=== PATIENT | female | born 1960 | race Caucasian/White ===

== ENCOUNTER 2016-07-29 18:54 | Inpatient (IN) | payer MEDICAID, OTHER ==
[2016-07-29 20:54] LABS: BASO # 0.1 K/uL (0.0-0.2); BASO % 0.8 % (0.0-2.0); EOS # 0.3 K/uL (0.0-0.7); EOS % 2.3 % (0.0-4.0); LYMPH # 2.2 K/uL (1.0-4.3); LYMPH % 19.7 % (20.0-40.0); MEAN CELL VOLUME 84.7 fL (81.0-99.0); MEAN CORPUSCULAR HEMOGLOBIN 27.6 pg (27.0-31.0); MEAN CORPUSCULAR HGB CONC 32.6 g/dL (33.0-37.0); MEAN PLATELET VOLUME 8.1 fL (7.2-11.7); MONO # 0.8 K/uL (0.0-0.8); MONO % 7.3 % (0.0-10.0); RED CELL DISTRIBUTION WIDTH 13.8 % (11.5-14.5); WHITE BLOOD COUNT 11.4 K/uL (4.8-10.8)
[2016-07-29 21:03] LABS: CHLORIDE 103 mmol/L (98-107)
[2016-07-29 21:04] LABS: POTASSIUM 3.9 mmol/L (3.6-5.2); SODIUM 140 mmol/L (132-148)
[2016-07-29 21:06] LABS: CARBON DIOXIDE 28 mmol/L (22-30); GFR AFRICAN-AMERICAN > 60
[2016-07-29 21:07] LABS: ALB/GLOB RATIO 1.2 (1.0-2.1); ALKALINE PHOSPHATASE 84 U/L (38-126); ALT/SGPT 21 U/L (9-52); AST/SGOT 30 U/L (14-36); BILIRUBIN,TOTAL 0.4 mg/dL (0.2-1.3); BLOOD UREA NITROGEN 15 mg/dL (7-17); CALCIUM 8.9 mg/dl (8.6-10.4); GLUCOSE,RANDOM 92 mg/dL (65-105); TOTAL PROTEIN 7.9 g/dL (6.3-8.3)
[2016-07-29 21:23] LABS: RBC URINE 1 /hpf (0-3); URINE BILIRUBIN NEGATIVE (NEGATIVE); URINE BLOOD NEGATIVE (NEGATIVE); URINE COLOR Yellow (YELLOW); URINE GLUCOSE (UA) NORMAL (Normal); URINE KETONE NEGATIVE (NEGATIVE); URINE LEUKOCYTE ESTERASE NEG Leu/uL (Negative); URINE PROTEIN NEGATIVE (NEGATIVE); URINE UROBILINOGEN NORMAL mg/dL (0.2-1.0)
[2016-07-29] MEDS ORDERED: Sodium Chloride 0.9% 1,000 ML IV ONE (21:34)
--- NOTE | 2016-07-29 21:41 | C.PDOC ---
History Of Present Illness 55 y/o female presents to the ED with complaints of epigastric/RUQ and back pain worsening over the past week. Pain worsens after eating fatty meals. Pt also reports nausea. Denies fever, chills, vomiting, diarrhea or any other complaints. Time Seen by Provider: 07/29/16 21:33 Chief Complaint (Nursing): Abdominal Pain History Per: Patient History/Exam Limitations: no limitations Onset/Duration Of Symptoms: Days Current Symptoms Are (Timing): Worse Context: Food Severity: Moderate Location Of Pain/Discomfort: RUQ, Epigastric Radiation Of Pain To:: None Quality Of Discomfort: "Pain" Associated Symptoms: Nausea. denies: Fever, Chills, Vomiting, Diarrhea Exacerbating Factors: Food Alleviating Factors: None Recent travel outside of the [place]: No Abnormal Vaginal Bleeding: No Past Medical History Reviewed: Historical Data, Nursing Documentation, Vital Signs Vital Signs: Last Vital Signs Temp 98.8 F 07/30/16 00:07 Pulse 89 07/30/16 00:07 Resp 18 07/30/16 00:07 BP 129/73 07/30/16 00:07 Pulse Ox 98 07/30/16 02:10 Family History: States: Unknown Family Hx - Social History Hx Tobacco Use: No Hx Alcohol Use: No Hx Substance Use: No - Immunization History Hx Tetanus Toxoid Vaccination: No Hx Influenza Vaccination: No Hx Pneumococcal Vaccination: No Review Of Systems Constitutional: Negative for: Fever, Chills Gastrointestinal: Positive for: Nausea, Abdominal Pain. Negative for: Vomiting , Diarrhea Physical Exam - Physical Exam Appears: Non-toxic, No Acute Distress Skin: Warm, Dry, No Rash Head: Atraumatic, Normacephalic Neck: Supple Chest: Symmetrical Cardiovascular: Rhythm Regular, No Murmur Respiratory: No Rales, No Rhonchi, No Wheezing Gastrointestinal/Abdominal: Soft, Tenderness (mid epigastric/RUQ tenderness), No Guarding, No Rebound Extremity: Bilateral: Atraumatic Neurological/Psych: Oriented x3, Normal Speech ED Course And Treatment - Laboratory Results Result Diagrams: 07/29/16 20:46 07/29/16 20:46 O2 Sat by Pulse Oximetry: 98 (room air) Pulse Ox Interpretation: Normal Progress Note: Plan: CT abdomen, labs, toradol, zofran, UA Disposition Discussed With : Reuben Robertson Comment: accepted the pt on his service and took over the care at 1:30 AM Doctor Will See Patient In The: Hospital Counseled Patient/Family Regarding: Studies Performed, Diagnosis - Disposition Disposition Time: 00:00 Condition: FAIR - Clinical Impression Clinical Impression: Abdominal pain, Cholecystitis, Ileus - Scribe Statement The provider has reviewed the documentation as recorded by the Nallely Lopez Provider Attestation: All medical record entries made by the Nallely were at my direction and personally dictated by me. I have reviewed the chart and agree that the record accurately reflects my personal performance of the history, physical exam, medical decision making, and the department course for this patient. I have also personally directed, reviewed, and agree with the discharge instructions and disposition. Decision To Admit - Pt Status Changed To: Hospital Disposition Of: Inpatient - Admit Certification Admit to Inpatient:: After my assessment, the patient will require hospitalization for at least two midnights. This is because of the severity of symptoms shown, intensity of services needed, and/or the medical risk in this patient being treated as an outpatient. - InPatient: Physician Admission Certification:: After my assessment, the patient will require hospitalization for at least two midnights. This is because of the severity of symptoms shown, intensity of services needed, and/or the medical risk in this patient being treated as an outpatient. - . Bed Request Type: Regular Admitting Physician: Reuben Robertson Patient Diagnosis: Abdominal pain, Cholecystitis, Ileus
[2016-07-29] MEDS ORDERED: Sodium Chloride 0.9% 1,000 ML ONE (21:52)
[2016-07-29] MEDS ORDERED: Iohexol 350mg/ml 100 ML ONE (23:00)
--- NOTE | 2016-07-30 00:04 | CT ---
EXAM: CT Abdomen and Pelvis With Intravenous Contrast CLINICAL HISTORY: 55 years old, female; Pain; Abdominal pain; Epigastric; Additional info: Ruq pain, elevated lipase TECHNIQUE: Axial computed tomography images of the abdomen and pelvis with intravenous contrast. This CT exam was performed using one or more of the following dose reduction techniques: automated exposure control, adjustment of the mA and/or kV according to patient size, and/or use of iterative reconstruction technique. Coronal and sagittal reformatted images were created and reviewed. CONTRAST: 100 mL of omnipaque 350 administered intravenously. EXAM DATE/TIME: 07/29/2016 9:33 PM COMPARISON: There are no prior studies for comparison. FINDINGS: Lower thorax: Heart size is normal. There is a small hiatal hernia. There is atelectasis/scarring at the lung bases ABDOMEN: Liver: unremarkable Gallbladder and bile ducts: Gallbladder is partially distended. There are multiples gallstones. Common bile duct is unremarkable. Pancreas: Body and tail of the pancreas are unremarkable. Streak and motion limits evaluation of pancreatic head. Spleen: unremarkable Adrenals: unremarkable Kidneys and ureters: unremarkable Stomach and bowel: Stomach is almost completely empty. Rotation is normal. There is fluid and air throughout the small bowel. There is mild proximal small bowel multiple prominence. There are mildly dilated small bowel loops in the midabdomen. There is no obstruction. Terminal ileum is unremarkable. Appendix is not visualized. There is no pericecal inflammation.Colon is incompletely distended which limits evaluation.There is diverticulosis. Appendix: See stomach and bowel PELVIS: Bladder: unremarkable Reproductive: Uterus is absent. There are no adnexal masses. ABDOMEN and PELVIS: Intraperitoneal space: There is no free air or free fluid. Bones/joints: There are degenerative changes in the osseus structures. Soft tissues: unremarkable Vasculature: There are calcified phleboliths. There are vascular calcifications. Lymph nodes: There is no pathologic adenopathy. IMPRESSION: Gallstones; ileus with possible enteritis; diverticulosis without CT findings of diverticulitis Additional findings as described above.
[2016-07-30] MEDS ORDERED: Piperacillin/Tazobact 3.375 gm 100 ML IVPB STA (00:14)
[2016-07-30] MEDS ORDERED: Piperacillin/Tazobact 3.375 gm 100 ML IVPB ONE (00:38)
--- NOTE | 2016-07-30 00:46 | CP.PCM.CON ---
Addendum entered and electronically signed by Masood Daly DO 07/30/16 12: 28: OR tomorrow for denis palacios Original Note: <Kar Moody - Last Filed: 07/30/16 05:54> History of Present Illness - History of Present Illness History of Present Illness: Surgery: Dr. Mortensen CC: Abd pain HPI: 55F w. pmh significant for asthma presents to ED w. diffuse abd pain x 3 days and back pain x1 week. Pt states that the abd pain has been constant. It is exacerabated w. diet. Pain is associated w. nausea and vomiting x 3. NBNB. Pt denies diarrhea. She denies ORANTES/blurred vision. No F/C. +Sore throat. No CP/ palpitations. No SOB/cough. +Dysuria. No Hematuria. Urine has foul odor. no weakness/fatigue PMH: asthma PSH: Tonsils, mass R knee, , breast bx, hysterectomy Meds: MAR reviewed NKDA Soical: Social ETOH, no tobacco/drugs Fhx: non-contributory Review of Systems - Review of Systems All systems: reviewed and no additional remarkable complaints except (HPI) Past Patient History - Infectious Disease Hx of Infectious Diseases: None - Past Social History Smoking Status: Never Smoked - PSYCHIATRIC Hx Substance Use: No - SURGICAL HISTORY Hx Surgeries: No - ANESTHESIA Hx Anesthesia: No Meds Allergies/Adverse Reactions: Allergies Allergy/AdvReac Type Severity Reaction Status Date / Time No Known Allergies Allergy Verified 07/29/16 19:33 Physical Exam - Constitutional Appears: Non-toxic, No Acute Distress - Head Exam Head Exam: ATRAUMATIC, NORMOCEPHALIC - Eye Exam Eye Exam: EOMI. absent: Scleral icterus - ENT Exam ENT Exam: Mucous Membranes Moist - Neck Exam Neck exam: Positive for: Full Rom - Respiratory Exam Respiratory Exam: NORMAL BREATHING PATTERN. absent: Accessory Muscle Use, Respiratory Distress - GI/Abdominal Exam GI & Abdominal Exam: Soft, Tenderness (diffuse). absent: Distended, Firm, Guarding, Rebound, Rigid - Extremities Exam Extremities exam: Positive for: calf tenderness (b/l), normal capillary refill, pedal pulses present. Negative for: joint swelling, pedal edema - Back Exam Back exam: CVA tenderness (L), CVA tenderness (R), paraspinal tenderness - Neurological Exam Neurological exam: Alert, Oriented x3 Results - Vital Signs Recent Vital Signs: Last Vital Signs Temp 98.8 F 07/30/16 00:07 Pulse 89 07/30/16 00:07 Resp 18 07/30/16 00:07 BP 129/73 07/30/16 00:07 Pulse Ox 99 07/30/16 00:07 - Labs Result Diagrams: 07/29/16 20:46 07/29/16 20:46 Labs: Laboratory Results - last 24 hr 07/29/16 07/29/16 07/29/16 20:46 20:46 21:17 WBC 11.4 H RBC 4.25 Hgb 11.7 Hct 36.0 MCV 84.7 MCH 27.6 MCHC 32.6 L RDW 13.8 Plt Count 289 MPV 8.1 Neut % (Auto) 69.9 Lymph % (Auto) 19.7 L [place] % (Auto) 7.3 Eos % (Auto) 2.3 Baso % (Auto) 0.8 Neut # 7.9 H Lymph # 2.2 [place] # 0.8 Eos # 0.3 Baso # 0.1 Sodium 140 Potassium 3.9 Chloride 103 Carbon Dioxide 28 Anion Gap 13 BUN 15 Creatinine 0.8 Est GFR ( Amer) > 60 Est GFR (Non-Af Amer) > 60 Random Glucose 92 Calcium 8.9 Total Bilirubin 0.4 AST 30 ALT 21 Alkaline Phosphatase 84 Total Protein 7.9 Albumin 4.4 Globulin 3.6 Albumin/Globulin Ratio 1.2 Lipase 305 H Urine Color Yellow Urine Clarity Clear Urine pH 7.0 Ur Specific [place] 1.013 Urine Protein Negative Urine Glucose (UA) Normal Urine Ketones Negative Urine Blood Negative Urine Nitrate Negative Urine Bilirubin Negative Urine Urobilinogen Normal Ur Leukocyte Esterase Neg Urine RBC (Auto) 1 - Imaging and Cardiology CT scan - abdomen Status: Image reviewed by me, Report reviewed by me Assessment & Plan - Assessment and Plan (Free Text) Assessment: 55F w. abd pain cholecystitis vs pancreatitis vs enteritis -U/S ordered, f/u results -NPO -IVF -abx -pain meds -serial abd exams -will d/w attending Heidy PGY2 <Ruddy Mortensen - Last Filed: 07/30/16 16:32> Meds - Medications Medications: Current Medications Famotidine (Pepcid) 20 mg IVP Q12 [facility] Last Admin: 07/30/16 10:21 Dose: 20 mg Hydromorphone HCl (Dilaudid) 0.5 mg IVP Q4H PRN PRN Reason: Pain, moderate (4-7) Last Admin: 07/30/16 10:23 Dose: 0.5 mg Ciprofloxacin (Cipro 400mg/200ml Dsw) 400 mg in 200 mls @ 133 mls/hr IVPB Q12H [facility] Last Admin: 07/30/16 14:30 Dose: 133 mls/hr Metronidazole (Flagyl) 500 mg in 100 mls @ 100 mls/hr IVPB Q8 [facility] Last Admin: 07/30/16 14:32 Dose: 100 mls/hr Sodium Chloride (Sodium Chloride 0.9%) 1,000 mls @ 110 mls/hr IV .Q9H6M [facility] Last Admin: 07/30/16 02:14 Dose: 110 mls/hr Ondansetron HCl (Zofran Inj) 4 mg IVP Q4 PRN PRN Reason: Nausea/Vomiting Results - Vital Signs Recent Vital Signs: Last Vital Signs Temp 97.5 F L 07/30/16 15:44 Pulse 65 07/30/16 15:44 Resp 18 07/30/16 15:44 BP 113/66 07/30/16 15:44 Pulse Ox 98 07/30/16 15:44 - Labs Result Diagrams: 07/29/16 20:46 07/29/16 20:46 Attending/Attestation - Attestation I have personally seen and examined this patient.: Yes I have fully participated in the care of the patient.: Yes I have reviewed all pertinent clinical information: Yes Notes (Text): 07/30/16 16:30 Pt was seen and examined at bedside on 07/30/16 Agree with above note and assessment. Pt with RUQ pain and tenderness Pt with cholelithiasis possible Cholecystitis CT scan reviewed Plan d.w GI Physician OR tomorrow for Lap cholecystectomy possible open Plan d.w pt and PMD in detail Risk and benefit explained in detail C/w current mx
[2016-07-30] MEDS ORDERED: HYDROmorphone 1 mg/ml ISec IVP PRN (00:51)
[2016-07-30] MEDS ORDERED: Sodium Chloride 0.9% 1,000 ML ONE (02:06)
[2016-07-30] MEDS ORDERED: Ciprofloxacin 400mg/200ml D5W 400 MG/200 ML BAG IVPB ONE (02:06)
[2016-07-30] MEDS: Sodium Chloride 0.9% 1,000 ML IV SCH ×2 (02:14→19:00)
[2016-07-30] MEDS: Ciprofloxacin 400mg/200ml D5W 400 MG/200 ML BAG IVPB SCH ×2 (02:15→14:30)
[2016-07-30] MEDS: metroNIDAZOLE IV 500 mg/100 ml 500 MG/100 ML BAG IVPB SCH ×3 (05:13→22:03)
--- NOTE | 2016-07-30 09:29 | CP.PCM.CON ---
<Bradley Stewart - Last Filed: 07/30/16 09:18> History of Present Illness - History of Present Illness History of Present Illness: PGY4 GI Fellow Consult Note Patient is a 55yo female with PMHx significant for depression who presented to the ED with complaint of back and abdominal pain. She suddenly developed mid- lower back pain about 1 week [employer] followed by the development of RUQ/epigastric discomfort 3 days [employer]. Pain was worst after eating, particularly when eating fried/fatty meals. Pain was not alleviated by OTC medications and thus she came to the ED for further evaluation. Patient admits to nausea, episodes of bilious emesis and constipation. Denies any fever, chills, diarrhea, sick contacts, recent travel or antibiotic use. PMHx: See HPI PSHx: Right knee (suspect Weeks's cyst), x2, hysterectomy, right breast bx x3 (benign) FHx: Discussed with patient and she denies any significant FHx Social: Denies tobacco, EtOH or illicit drug use Endo: EGD/Colonoscopy 6 years ago at [facility] in the [place] - gastritis Review of Systems - Constitutional Constitutional: absent: Anorexia, Chills, Fever, Weight Loss - EENT Eyes: absent: Change in Vision Nose/Mouth/Throat: absent: Sore Throat - Cardiovascular Cardiovascular: absent: Chest Pain, Dyspnea, Edema - Respiratory Respiratory: absent: Cough, Dyspnea, Excessive Mucous Production - Gastrointestinal Gastrointestinal: Abdominal Pain, Constipation, Cramping, Nausea, Vomiting. absent: Bloating, Diarrhea, Dyspepsia, Dysphagia, Hematemesis, Hematochezia, Melena - Genitourinary Genitourinary: absent: Dysuria, Urinary Frequency, Urinary Urgency - Musculoskeletal Musculoskeletal: Back Pain. absent: Neck Pain - Integumentary Integumentary: absent: New Lesions, Rash - Neurological Neurological: absent: Dizziness, Numbness, Focal Weakness - Psychiatric Psychiatric: absent: Anxiety, Depression - Endocrine Endocrine: absent: Polydipsia, Polyphagia, Polyuria - Hematologic/Lymphatic Hematologic: absent: Easy Bleeding, Easy Bruising, Lymphadenopathy Past Patient History - Infectious Disease Hx of Infectious Diseases: None - Past Medical History & Family History Past Medical History?: Yes - Past Social History Smoking Status: Never Smoked - CARDIAC Hx Cardiac Disorders: No - PULMONARY Hx Respiratory Disorders: Yes Hx Asthma: Yes - NEUROLOGICAL Hx Neurological Disorder: No - HEENT Hx HEENT Problems: No - RENAL Hx Chronic Kidney Disease: No - ENDOCRINE/METABOLIC Hx Endocrine Disorders: No - HEMATOLOGICAL/ONCOLOGICAL Hx Blood Disorders: No - INTEGUMENTARY Hx Dermatological Problems: No - MUSCULOSKELETAL/RHEUMATOLOGICAL Hx Musculoskeletal Disorders: No Hx Falls: No - GASTROINTESTINAL Hx Gastrointestinal Disorders: Yes Hx Diverticulitis: Yes Other/Comment: Sx removal of section of intestines - GENITOURINARY/GYNECOLOGICAL Hx Genitourinary Disorders: No - PSYCHIATRIC Hx Substance Use: No - SURGICAL HISTORY Hx Surgeries: No - ANESTHESIA Hx Anesthesia: No Meds Allergies/Adverse Reactions: Allergies Allergy/AdvReac Type Severity Reaction Status Date / Time No Known Allergies Allergy Verified 07/29/16 19:33 - Medications Medications: Current Medications Famotidine (Pepcid) 20 mg IVP Q12 [facility] Hydromorphone HCl (Dilaudid) 0.5 mg IVP Q4H PRN PRN Reason: Pain, moderate (4-7) Ciprofloxacin (Cipro 400mg/200ml Dsw) 400 mg in 200 mls @ 133 mls/hr IVPB Q12H [facility] Last Admin: 07/30/16 02:15 Dose: 133 mls/hr Metronidazole (Flagyl) 500 mg in 100 mls @ 100 mls/hr IVPB Q8 [facility] Last Admin: 07/30/16 05:13 Dose: 100 mls/hr Sodium Chloride (Sodium Chloride 0.9%) 1,000 mls @ 110 mls/hr IV .Q9H6M [facility] Last Admin: 07/30/16 02:14 Dose: 110 mls/hr Ondansetron HCl (Zofran Inj) 4 mg IVP Q4 PRN PRN Reason: Nausea/Vomiting Physical Exam - Constitutional Appears: Non-toxic, No Acute Distress - Eye Exam Eye Exam: EOMI, PERRL - ENT Exam ENT Exam: Mucous Membranes Moist - Respiratory Exam Respiratory Exam: Clear to Auscultation Bilateral. absent: Rales, Rhonchi, Wheezes - Cardiovascular Exam Cardiovascular Exam: RRR, +S1, +S2 - GI/Abdominal Exam GI & Abdominal Exam: Guarding, Normal Bowel Sounds, Soft, Tenderness (RUQ, Epigastric). absent: Distended, Firm, Organomegaly, Rigid Additional comments: +Juarez sign - Extremities Exam Extremities exam: Positive for: normal inspection. Negative for: pedal edema - Neurological Exam Neurological exam: Alert, Oriented x3 - Psychiatric Exam Psychiatric exam: Normal Affect, Normal Mood - Skin Skin Exam: Dry, Warm Results - Vital Signs Recent Vital Signs: Last Vital Signs Temp 98.1 F 07/30/16 07:00 Pulse 66 07/30/16 07:00 Resp 20 07/30/16 07:00 BP 113/61 07/30/16 07:00 Pulse Ox 96 07/30/16 07:00 - Labs Result Diagrams: 07/29/16 20:46 07/29/16 20:46 Assessment & Plan - Assessment and Plan (Free Text) Assessment: Patient is a 55yo female with PMHx significant for depression who presented to the ED with complaint of back and abdominal pain -Abdominal/back pain possibly 2/2 biliary colic vs resolving gallstone pancreatitis; no evidence for choledocolithiasis -Cholelithiasis -Constipation Plan: -U/S and CT showing cholelithiasis (some stones up to 1cm+) -Do not recommend antibiotic coverage for acute enteritis as patient does not exhibit any signs/symptoms of this, vitals stable, slight white count -If pain persists despite therapy, consider EGD tomorrow -Recommend surgical evaluation for cholecystectomy -Analgesia as ordered -Diet as tolerated - Date & Time Date: 07/30/16 Time: 07:10 <Owen Martino - Last Filed: 07/30/16 09:55> Meds - Medications Medications: Current Medications Famotidine (Pepcid) 20 mg IVP Q12 [facility] Hydromorphone HCl (Dilaudid) 0.5 mg IVP Q4H PRN PRN Reason: Pain, moderate (4-7) Ciprofloxacin (Cipro 400mg/200ml Dsw) 400 mg in 200 mls @ 133 mls/hr IVPB Q12H [facility] Last Admin: 07/30/16 02:15 Dose: 133 mls/hr Metronidazole (Flagyl) 500 mg in 100 mls @ 100 mls/hr IVPB Q8 [facility] Last Admin: 07/30/16 05:13 Dose: 100 mls/hr Sodium Chloride (Sodium Chloride 0.9%) 1,000 mls @ 110 mls/hr IV .Q9H6M [facility] Last Admin: 07/30/16 02:14 Dose: 110 mls/hr Ondansetron HCl (Zofran Inj) 4 mg IVP Q4 PRN PRN Reason: Nausea/Vomiting Results - Vital Signs Recent Vital Signs: Last Vital Signs Temp 98.1 F 07/30/16 07:00 Pulse 66 07/30/16 07:00 Resp 20 07/30/16 07:00 BP 113/61 07/30/16 07:00 Pulse Ox 96 07/30/16 07:00 - Labs Result Diagrams: 07/29/16 20:46 07/29/16 20:46 Attending/Attestation - Attestation I have personally seen and examined this patient.: Yes I have fully participated in the care of the patient.: Yes I have reviewed all pertinent clinical information: Yes Notes (Text): 07/30/16 09:48 I have seen and examined patient with GI fellow. Agree with above documentation with the following additions. In brief, this is a 55 year old female with history of depression who presents to hospital with complaint of abdominal pain. She describes progressively worsening epigastric abdominal discomfort, 6/10 intensity, radiates to RUQ/back and is worse following meal consumption, specifically fried/fatty food. Symptoms were associated with multiple episodes of non-bloody emesis. She denies fever/chills, weight loss, rectal bleeding, recent antibiotic use, sick contacts, travel history, NSAID use , or change in bowel habits. She had an EGD/colonoscopy 6 years ago which showed gastritis as per patient. Depression Abdominal pain Abdominal US reviewed by me showing multiple gallstones, normal caliber CBD, + Juarez's sign during sonography and physical examination - NPO - Continue with antibiotic therapy - LFTs, bilirubin normal, continue to monitor - Suggest surgical evaluation for potential cholecystectomy given clinical picture and concern for cholecystitis/symptomatic cholelithiasis - If no surgical intervention is planned and pain persists, may consider endoscopic evaluation to rule out peptic ulcer disease or helicobacter pylori associated gastritis.
--- NOTE | 2016-07-30 09:48 | CARD ---
APPROVED REPORT EKG Measurement Heart [id number] <Conclusion> Normal sinus rhythm Normal ECG
--- NOTE | 2016-07-30 10:09 | US ---
Abdominal ultrasound History: Right upper quadrant abdominal pain. Comparison: CT scan dated 07/29/2016 Technique: Real-time sonography was performed through the abdomen. Findings: Liver: 14.4 centimeters in length. Increased echogenicity of the hepatic parenchymal cortex suggestive for fatty infiltration versus hepatic parenchymal disease. Gallbladder: Cholelithiasis. Calculi measure up to 1.1 centimeters. Normal wall thickness of 1.2 millimeters. No gross pericholecystic fluid. Positive sonographic Juarez's sign. Common bile duct measures 2.7 millimeters, within normal limits. Pancreas not well visualized. Spleen measures 7.2 centimeters in length, within normal limits. Visualized aorta and IVC are preserved. Right kidney: 9.7 x 3.5 x 4.3 centimeters. No calculi or hydronephrosis. Left kidney: 9.0 x 5.2 x 5.5 centimeters. Mild fullness versus mild hydronephrosis of the left renal collecting system. Impression: Increased echogenicity of the hepatic parenchymal cortex suggestive for fatty infiltration versus hepatic parenchymal disease. Cholelithiasis. Positive sonographic Juarez sign. No gross wall thickening or edema. Clinical correlation. Pancreas not well visualized. Mild fullness versus mild hydronephrosis of the left renal collecting system.
--- NOTE | 2016-07-30 13:55 | CP.PCM.HP ---
History of Present Illness - History of Present Illness History of Present Illness: 55-year-old [place]ritrean-speaking patients with no significant past medical history complaints of right upper quadrant pain for 2 days so came to the [facility] no nausea no vomiting no fever no chills patient has no diarrhea patient denies any headache eventually patient was given a Toradol because of the severe pain patient underwent CAT scan found to have a cholecystitis and eventually patient was started on Cipro meningeal Flagyl and not hospitalized. Past Patient History - Infectious Disease Hx of Infectious Diseases: None - Past Medical History & Family History Past Medical History?: Yes - Past Social History Smoking Status: Never Smoked - CARDIAC Hx Cardiac Disorders: No - PULMONARY Hx Respiratory Disorders: Yes Hx Asthma: Yes - NEUROLOGICAL Hx Neurological Disorder: No - HEENT Hx HEENT Problems: No - RENAL Hx Chronic Kidney Disease: No - ENDOCRINE/METABOLIC Hx Endocrine Disorders: No - HEMATOLOGICAL/ONCOLOGICAL Hx Blood Disorders: No - INTEGUMENTARY Hx Dermatological Problems: No - MUSCULOSKELETAL/RHEUMATOLOGICAL Hx Musculoskeletal Disorders: No Hx Falls: No - GASTROINTESTINAL Hx Gastrointestinal Disorders: Yes Hx Diverticulitis: Yes Other/Comment: Sx removal of section of intestines - GENITOURINARY/GYNECOLOGICAL Hx Genitourinary Disorders: No - PSYCHIATRIC Hx Substance Use: No - SURGICAL HISTORY Hx Surgeries: No - ANESTHESIA Hx Anesthesia: No Meds Allergies/Adverse Reactions: Allergies Allergy/AdvReac Type Severity Reaction Status Date / Time No Known Allergies Allergy Verified 07/29/16 19:33 Physical Exam - Constitutional Appears: Well - Head Exam Head Exam: ATRAUMATIC, NORMAL INSPECTION, NORMOCEPHALIC - Eye Exam Eye Exam: EOMI, Normal appearance, PERRL Pupil Exam: NORMAL ACCOMODATION, PERRL - ENT Exam ENT Exam: Mucous Membranes Moist, Normal Exam - Neck Exam Neck exam: Positive for: Normal Inspection - Respiratory Exam Respiratory Exam: Decreased Breath Sounds - Cardiovascular Exam Cardiovascular Exam: REGULAR RHYTHM, +S1, +S2 - GI/Abdominal Exam GI & Abdominal Exam: Diminished Bowel Sounds, Soft - Rectal Exam Rectal Exam: Deferred Results - Vital Signs Recent Vital Signs: Last Vital Signs Temp 98.1 F 07/30/16 07:00 Pulse 66 07/30/16 07:00 Resp 20 07/30/16 07:00 BP 113/61 07/30/16 07:00 Pulse Ox 96 07/30/16 07:00 - Labs Result Diagrams: 07/29/16 20:46 07/29/16 20:46 Assessment & Plan - Assessment and Plan (Free Text) Plan: Surgical consult with Dr. Merrill to Protonix and Lovenox IV [place] metronidazole IV Cipro continue same home medications and reconciled
[2016-07-31] MEDS: Ciprofloxacin 400mg/200ml D5W 400 MG/200 ML BAG IVPB SCH ×2 (01:28→13:20)
[2016-07-31] MEDS: metroNIDAZOLE IV 500 mg/100 ml 500 MG/100 ML BAG IVPB SCH ×2 (06:28→14:44)
[2016-07-31] MEDS: Sodium Chloride 0.9% 1,000 ML IV SCH (06:34)
[2016-07-31 08:26] LABS: BASO % 0.4 % (0.0-2.0); EOS # 0.3 K/uL (0.0-0.7); EOS % 3.7 % (0.0-4.0); HEMATOCRIT 35.2 % (34.0-47.0); LYMPH # 1.5 K/uL (1.0-4.3); MEAN CELL VOLUME 84.6 fL (81.0-99.0); MEAN CORPUSCULAR HEMOGLOBIN 27.5 pg (27.0-31.0); MEAN CORPUSCULAR HGB CONC 32.5 g/dL (33.0-37.0); MEAN PLATELET VOLUME 8.3 fL (7.2-11.7); MONO # 0.4 K/uL (0.0-0.8); MONO % 5.2 % (0.0-10.0); RED CELL DISTRIBUTION WIDTH 13.6 % (11.5-14.5); WHITE BLOOD COUNT 6.9 K/uL (4.8-10.8)
[2016-07-31 08:39] LABS: CHLORIDE 106 mmol/L (98-107); POTASSIUM 3.9 mmol/L (3.6-5.2); SODIUM 142 mmol/L (132-148)
[2016-07-31 08:41] LABS: GFR AFRICAN-AMERICAN > 60
[2016-07-31 08:42] LABS: ALB/GLOB RATIO 1.2 (1.0-2.1); ALKALINE PHOSPHATASE 76 U/L (38-126); ALT/SGPT 18 U/L (9-52); AST/SGOT 29 U/L (14-36); BILIRUBIN,TOTAL 0.5 mg/dL (0.2-1.3); BLOOD UREA NITROGEN 6 mg/dL (7-17); CARBON DIOXIDE 28 mmol/L (22-30); GLUCOSE,RANDOM 93 mg/dL (65-105); TOTAL PROTEIN 7.1 g/dL (6.3-8.3)
[2016-07-31 08:43] LABS: CALCIUM 8.5 mg/dl (8.6-10.4)
[2016-07-31 08:48] LABS: INR 1.1
--- NOTE | 2016-07-31 10:12 | CP.PCM.PN ---
<RuthjessicaBradley maxwell - Last Filed: 07/31/16 11:22> Subjective - Date & Time of Evaluation Date of Evaluation: 07/31/16 Time of Evaluation: 07:00 - Subjective Subjective: PGY4 GI Fellow Progress Note Patient seen and examined bedside this morning. She states that her pain has improved modestly but is still present, predominantly in the RUQ. Has not passed stool since prior to admission. No appetite. NPO for surgery today. 12 system ROS performed and negative except where stated. Objective - Vital Signs/Intake and Output Vital Signs (last 24 hours): Temp Pulse Resp BP Pulse Ox 98.1 F 65 17 116/74 97 07/31/16 07:25 07/31/16 07:25 07/31/16 07:25 07/31/16 07:25 07/31/16 07:25 Intake and Output: 07/31/16 07/31/16 06:59 18:59 Intake Total 2069 Balance 2069 - Medications Medications: Current Medications Famotidine (Pepcid) 20 mg IVP Q12 [facility] Last Admin: 07/31/16 09:54 Dose: 20 mg Hydromorphone HCl (Dilaudid) 0.5 mg IVP Q4H PRN PRN Reason: Pain, moderate (4-7) Last Admin: 07/30/16 10:23 Dose: 0.5 mg Ciprofloxacin (Cipro 400mg/200ml Dsw) 400 mg in 200 mls @ 133 mls/hr IVPB Q12H [facility] Last Admin: 07/31/16 01:28 Dose: 133 mls/hr Metronidazole (Flagyl) 500 mg in 100 mls @ 100 mls/hr IVPB Q8 [facility] Last Admin: 07/31/16 06:28 Dose: 100 mls/hr Sodium Chloride (Sodium Chloride 0.9%) 1,000 mls @ 110 mls/hr IV .Q9H6M [facility] Last Admin: 07/31/16 06:34 Dose: Not Given Ondansetron HCl (Zofran Inj) 4 mg IVP Q4 PRN PRN Reason: Nausea/Vomiting - Labs Labs: 07/31/16 08:15 07/31/16 08:15 PT 12.5 SECONDS (9.7-12.2) H 07/31/16 08:15 INR 1.1 07/31/16 08:15 APTT 28 SECONDS (21-34) 07/31/16 08:15 - Constitutional Appears: Non-toxic, No Acute Distress - Eye Exam Eye Exam: EOMI, PERRL - ENT Exam ENT Exam: Mucous Membranes Moist - Respiratory Exam Respiratory Exam: Clear to Ausculation Bilateral. absent: Rales, Rhonchi, Wheezes - Cardiovascular Exam Cardiovascular Exam: RRR, +S1, +S2 - GI/Abdominal Exam GI & Abdominal Exam: Guarding, Soft, Tenderness (RUQ, Epigastric), Normal Bowel Sounds. absent: Distended, Firm, Rigid, Organomegaly Additional comments: +Juarez sign - Extremities Exam Extremities Exam: Normal Inspection. absent: Pedal Edema - Neurological Exam Neurological Exam: Alert, Awake, Oriented x3 - Psychiatric Exam Psychiatric exam: Normal Affect, Normal Mood - Skin Skin Exam: Dry, Warm Assessment and Plan - Assessment and Plan (Free Text) Assessment: Patient is a 55yo female with PMHx significant for depression who presented to the ED with complaint of back and abdominal pain -Abdominal/back suspect 2/2 biliary colic vs resolving gallstone pancreatitis; no evidence for choledocolithiasis -Cholelithiasis, possible early acute cholecystitis -Constipation Plan: -Pt NPO for laparoscopic cholecystectomy today -No further recommendations at this time as there is no evidence of choledocolithiasis -If pain persists, recommend outpatient follow up for elective endoscopy -Please reconsult as needed, thank you for allowing us to participate in the care of your patient <Yanet Montez - Last Filed: 07/31/16 11:33> Objective - Vital Signs/Intake and Output Vital Signs (last 24 hours): Temp Pulse Resp BP Pulse Ox 98.1 F 65 17 116/74 97 07/31/16 07:25 07/31/16 07:25 07/31/16 07:25 07/31/16 07:25 07/31/16 07:25 Intake and Output: 07/31/16 07/31/16 06:59 18:59 Intake Total 2069 Balance 2069 - Medications Medications: Current Medications Famotidine (Pepcid) 20 mg IVP Q12 [facility] Last Admin: 07/31/16 09:54 Dose: 20 mg Hydromorphone HCl (Dilaudid) 0.5 mg IVP Q4H PRN PRN Reason: Pain, moderate (4-7) Last Admin: 07/30/16 10:23 Dose: 0.5 mg Ciprofloxacin (Cipro 400mg/200ml Dsw) 400 mg in 200 mls @ 133 mls/hr IVPB Q12H [facility] Last Admin: 07/31/16 01:28 Dose: 133 mls/hr Metronidazole (Flagyl) 500 mg in 100 mls @ 100 mls/hr IVPB Q8 [facility] Last Admin: 07/31/16 06:28 Dose: 100 mls/hr Sodium Chloride (Sodium Chloride 0.9%) 1,000 mls @ 110 mls/hr IV .Q9H6M [facility] Last Admin: 07/31/16 06:34 Dose: Not Given Ondansetron HCl (Zofran Inj) 4 mg IVP Q4 PRN PRN Reason: Nausea/Vomiting - Labs Labs: 07/31/16 08:15 07/31/16 08:15 PT 12.5 SECONDS (9.7-12.2) H 07/31/16 08:15 INR 1.1 07/31/16 08:15 APTT 28 SECONDS (21-34) 07/31/16 08:15 Attending/Attestation - Attestation I have personally seen and examined this patient.: Yes I have fully participated in the care of the patient.: Yes I have reviewed all pertinent clinical information, including history, physical exam and plan: Yes Notes (Text): Patient seen and examined with GI fellow. Agree with his note as documented above with the following additions/exceptions. This is a 55 year old female who is admitted with back pain/abdominal pain, likely due to symptomatic cholelithiasis. She complains of persistent abdominal pain today, maybe slightly improved. No nausea or vomiting. Her LFTs are normal and CBD normal on ultrasound. She is NPO for cholecystectomy today. Continue supportive care. Further management as per surgical team. Please call with any questions. 07/31/16 11:33
--- NOTE | 2016-07-31 11:43 | CP.PCM.PN ---
Subjective - Date & Time of Evaluation Date of Evaluation: 07/31/16 Time of Evaluation: 13:00 - Subjective Subjective: clinically same Objective - Vital Signs/Intake and Output Vital Signs (last 24 hours): Temp Pulse Resp BP Pulse Ox 98.1 F 65 17 116/74 97 07/31/16 07:25 07/31/16 07:25 07/31/16 07:25 07/31/16 07:25 07/31/16 07:25 Intake and Output: 07/31/16 07/31/16 06:59 18:59 Intake Total 2069 Balance 2069 - Medications Medications: Current Medications Famotidine (Pepcid) 20 mg IVP Q12 [facility] Last Admin: 07/31/16 09:54 Dose: 20 mg Hydromorphone HCl (Dilaudid) 0.5 mg IVP Q4H PRN PRN Reason: Pain, moderate (4-7) Last Admin: 07/30/16 10:23 Dose: 0.5 mg Ciprofloxacin (Cipro 400mg/200ml Dsw) 400 mg in 200 mls @ 133 mls/hr IVPB Q12H [facility] Last Admin: 07/31/16 01:28 Dose: 133 mls/hr Metronidazole (Flagyl) 500 mg in 100 mls @ 100 mls/hr IVPB Q8 [facility] Last Admin: 07/31/16 06:28 Dose: 100 mls/hr Sodium Chloride (Sodium Chloride 0.9%) 1,000 mls @ 110 mls/hr IV .Q9H6M [facility] Last Admin: 07/31/16 06:34 Dose: Not Given Ondansetron HCl (Zofran Inj) 4 mg IVP Q4 PRN PRN Reason: Nausea/Vomiting - Labs Labs: 07/31/16 08:15 07/31/16 08:15 PT 12.5 SECONDS (9.7-12.2) H 07/31/16 08:15 INR 1.1 07/31/16 08:15 APTT 28 SECONDS (21-34) 07/31/16 08:15 - Constitutional Appears: Well - Head Exam Head Exam: ATRAUMATIC, NORMAL INSPECTION, NORMOCEPHALIC - Eye Exam Eye Exam: EOMI, Normal appearance, PERRL Pupil Exam: NORMAL ACCOMODATION, PERRL - ENT Exam ENT Exam: Mucous Membranes Moist, Normal Exam - Neck Exam Neck Exam: Full ROM, Normal Inspection. absent: Lymphadenopathy - Respiratory Exam Respiratory Exam: Decreased Breath Sounds - Cardiovascular Exam Cardiovascular Exam: REGULAR RHYTHM, +S1, +S2 - GI/Abdominal Exam GI & Abdominal Exam: Soft, Diminished Bowel Sounds - Rectal Exam Rectal Exam: Deferred
--- NOTE | 2016-07-31 14:35 | CP.PCM.PCO ---
Physician Communication Note - Physician Communication Note Physician Communication Note: Reg diet - clear for d/c. Elective philip next week
[2016-07-31 16:03] VITALS: BP 126/71; PULSE 68; RESP 18; TEMP 98; O2SAT 98
--- NOTE | 2016-07-31 17:24 | CP.PCM.PN ---
Subjective - Date & Time of Evaluation Date of Evaluation: 07/31/16 Time of Evaluation: 17:21 - Subjective Subjective: 55 Y/O FEMALE SEEN AND EXAMINED TODAY BY DR Naun DOMINGUEZ, PT ADMITTED FOR RUQ PAIN, CT ABD/PELVIS- GALLSTONES, PT TOLERATING REGULAR DIET, PT CLEARED FOR DISCHARGE TODAY BY DR Naun DOMINGUEZ AND SURGERY. PT WILL F/U WITH DR Naun DOMINGUEZ IN THE OFFICE ON FRIDAY FOR PRE-OP CLEARANCE, ELECTIVE SURGERY NEXT WEEK, FLAGYL AND CIPRO PER Naun DOMINGUEZ. PT AGREE W/POC AND VERBALIZE UNDERSTANDING. Objective - Vital Signs/Intake and Output Vital Signs (last 24 hours): Temp Pulse Resp BP Pulse Ox 98 F 68 18 126/71 98 07/31/16 15:50 07/31/16 15:50 07/31/16 15:50 07/31/16 15:50 07/31/16 15:50 Intake and Output: 07/31/16 07/31/16 06:59 18:59 Intake Total 2069 Balance 2069 - Medications Medications: Current Medications Famotidine (Pepcid) 20 mg IVP Q12 [facility] Last Admin: 07/31/16 09:54 Dose: 20 mg Hydromorphone HCl (Dilaudid) 0.5 mg IVP Q4H PRN PRN Reason: Pain, moderate (4-7) Last Admin: 07/30/16 10:23 Dose: 0.5 mg Ciprofloxacin (Cipro 400mg/200ml Dsw) 400 mg in 200 mls @ 133 mls/hr IVPB Q12H [facility] Last Admin: 07/31/16 13:20 Dose: 133 mls/hr Metronidazole (Flagyl) 500 mg in 100 mls @ 100 mls/hr IVPB Q8 [facility] Last Admin: 07/31/16 14:44 Dose: 100 mls/hr Sodium Chloride (Sodium Chloride 0.9%) 1,000 mls @ 110 mls/hr IV .Q9H6M [facility] Last Admin: 07/31/16 06:34 Dose: Not Given Ondansetron HCl (Zofran Inj) 4 mg IVP Q4 PRN PRN Reason: Nausea/Vomiting - Labs Labs: 07/31/16 08:15 07/31/16 08:15 PT 12.5 SECONDS (9.7-12.2) H 07/31/16 08:15 INR 1.1 07/31/16 08:15 APTT 28 SECONDS (21-34) 07/31/16 08:15
== END 2016-07-31 17:40 | disposition home or self-care (01) | DRG 207 ==
LOC: C.ER 18:54 → C.6T 07-30 02:43
PROVIDERS: ADMIT Internal Medicine Nephrology; ATTEND Internal Medicine Nephrology
DX: K80.10 Calculus of gallbladder with chronic cholecystitis without obstruction (principal); K56.7 Ileus, unspecified; F32.9 Major depressive disorder, single episode, unspecified; J45.909 Unspecified asthma, uncomplicated; K29.70 Gastritis, unspecified, without bleeding

== ENCOUNTER 2018-07-17 17:45 | Emergency (ER) | payer MEDICAID, OTHER ==
[2018-07-17 18:01] VITALS: O2SAT 98
[2018-07-17 19:52] VITALS: BP 163/78; PULSE 77; RESP 17; TEMP 97.7
--- NOTE | 2018-07-17 20:03 | C.PDOC ---
History Of Present Illness 57 year old female presents to the ED for evaluation of right foot injury status post accidentally hitting foot against piece of furniture. Contrary to triage, patient complains of pain and swelling to right 4th toe. Denies any other injuries, weakness, or numbness. Time Seen by Provider: 07/17/18 18:48 Chief Complaint (Nursing): Lower Extremity Problem/Injury History Per: Patient History/Exam Limitations: no limitations Onset/Duration Of Symptoms: Hrs Current Symptoms Are (Timing): Still Present - Ankle/Foot Description Of Injury: Struck With Object Past Medical History Reviewed: Historical Data, Nursing Documentation, Vital Signs Vital Signs: Last Vital Signs Temp 97.7 F 07/17/18 19:51 Pulse 77 07/17/18 19:51 Resp 17 07/17/18 19:51 BP 163/78 H 07/17/18 19:51 Pulse Ox 98 07/17/18 19:51 Primary Care Provider: FAMILY PROVIDER,NO - Medical History PMH: Asthma, Diverticulitis, Gall Bladder Disease Denies: Chronic Kidney Disease Surgical History: Cholecystectomy, Tonsillectomy Family History: States: No Known Family Hx - Social History Hx Tobacco Use: No Hx Alcohol Use: No Hx Substance Use: No - Immunization History Hx Tetanus Toxoid Vaccination: No Hx Influenza Vaccination: No Hx Pneumococcal Vaccination: No Review Of Systems Except As Marked, All Systems Reviewed And Found Negative. Musculoskeletal: Positive for: Foot Pain (right 4th toe pain and swelling ) Neurological: Negative for: Weakness, Numbness Physical Exam - Physical Exam Appears: Non-toxic, No Acute Distress Skin: Warm, Dry, No Rash Head: Normacephalic Eye(s): bilateral: Normal Inspection Oral Mucosa: Moist Neck: Supple Chest: Symmetrical Cardiovascular: Rhythm Regular Respiratory: Normal Breath Sounds, No Rales, No Rhonchi, No Wheezing Extremity: Tenderness (right 4th toe ), Other (swelling and ecchymosis to right 4th toe) Pulses: Left Dorsalis Pedis: Normal, Right Dorsalis Pedis: Normal Neurological/Psych: Oriented x3, Normal Speech, Normal Motor, Normal Sensation Gait: Steady ED Course And Treatment O2 Sat by Pulse Oximetry: 98 (RA) Pulse Ox Interpretation: Normal Progress Note: X-ray of right foot ordered and reviewed, which shows fracture. Wing Tape and Ortho shoe applied by CP. Patient instructed to follow upo with Podiatry. 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 RETURN TO ED IF FEELS WORSE. Instructions: Toe Fracture (DC) Forms: [employer] (Divehi) Print Language: LITHUANIAN - Clinical Impression Clinical Impression: Toe fracture - PA / CHAUFFEUR / Resident Statement MD/DO has reviewed & agrees with the documentation as recorded. - Scribe Statement The provider has reviewed the documentation as recorded by the Scribe Keyona Underwood All medical record entries made by the Maryibmitchell were at my direction and personally dictated by me. I have reviewed the chart and agree that the record accurately reflects my personal performance of the history, physical exam, me dical decision making, and the department course for this patient. I have also personally directed, reviewed, and agree with the discharge instructions and disposition.
--- NOTE | 2018-07-18 06:57 | RAD ---
Left foot 4 digit three views History: Fracture. Comparison: None available. Findings: Horizontally oriented fracture deformity through the 4th middle phalanx. Severe hallux valgus deformity. Diffuse osteopenia. Impression: Horizontally oriented fracture deformity through the 4th middle phalanx. Severe hallux valgus deformity. Diffuse osteopenia.
== END 2018-07-17 20:30 | disposition home or self-care (01) ==
LOC: C.ER 17:45
DX: S92.501A Displaced unspecified fracture of right lesser toe(s), initial encounter for closed fracture (principal); W22.03XA Walked into furniture, initial encounter